=== PATIENT | female | born 1950 | race Caucasian/White ===

== ENCOUNTER → 2025-03-17 09:35 | Outpatient (CLI) | payer MEDICARE, SELFPAY ==
[2025-03-17 19:16] LABS: Add Manual Diff / Slide Review NO; Hematocrit 42.1 % (36-46); Hemoglobin 14.4 g/dL (12.0-16.0); Lymphocytes Absolute Auto 1300 /uL (1100-4500); Mean Corpuscular HGB Conc 34.1 % (30-36); Mean Corpuscular Hemoglobin 31.0 PG (26-34); Mean Corpuscular Volume 90.9 fL (80-100); Platelet Count 265 X10^3/uL (150-400)
[2025-03-17 19:33] LABS: Alanine Aminotransferase 17 IU/L (<35); Albumin 4.3 g/dL (3.5-5.0); Albumin Globulin Ratio 1.4 (1.0-2.8); Alkaline Phosphatase 64 U/L (38-126); Blood Urea Nitrogen 16 mg/dL (7-17); Calcium 9.6 mg/dL (8.4-10.2); Carbon Dioxide 24 mmol/L (22-32); Chloride 102 mmol/L (98-107); Cholesterol 208 mg/dL (140-199); Estimated Glomerular Filt Rate > 60 mL/min (>60); Globulin 3.1 g/dL (1.7-4.1); Glucose 90 mg/dL (70-99); HDL Cholesterol 89 mg/dL (40-60); HEMOLYSIS < 15 (0-50); Potassium 4.2 mmol/L (3.4-5.1); Sodium 135 mmol/L (137-145); Total Protein 7.4 g/dL (6.3-8.2); Triglycerides 75 mg/dL (35-150)
[2025-03-17 20:05] LABS: TSH w/ Reflex to FT4 3.02 uIU/mL (0.47-4.68)
[2025-03-17 20:19] LABS: Hep C Virus Ab w/Reflex Quant REACTIVE s/c (NEGATIVE)
== END ==
PROVIDERS: Family Medicine; PCP Physician Assistant; Visit Provider Physician Assistant
DX: R21 Rash and other nonspecific skin eruption (principal); R53.83 Other fatigue; Z13.6 Encounter for screening for cardiovascular disorders; Z11.59 Encounter for screening for other viral diseases; C84.10 Sezary disease, unspecified site
CPT/HCPCS: 80053; 80061; 83615; 84443; 85025; 85651; 86803; 87040; 87522